=== PATIENT | male | born 1985 | race Two or more races ===

== ENCOUNTER 2019-01-21 00:31 | Emergency (ER) | payer OTHER ==
[~2019-01-21] VITALS: Ht 167.6 cm; Wt 93.2 kg
[2019-01-21 01:09] LABS: GLUCOSE,POINT OF CARE 158 MG/DL (70-110)
[2019-01-21 02:19] VITALS: BP 147/97
== END 2019-01-21 03:05 | disposition home or self-care (01) ==
LOC: EMS 00:38
DX: B35.3 Tinea pedis (principal); F41.9 Anxiety disorder, unspecified; E11.9 Type 2 diabetes mellitus without complications; F17.210 Nicotine dependence, cigarettes, uncomplicated